=== PATIENT | female | born 1945 | race Asian ===

== ENCOUNTER → 2023-09-14 10:29 | Outpatient (REF) | payer OTHER, SELFPAY | LOC: RAD 10:29 | PROVIDERS: ATTENDING PHYSICIAN Specialist; FAMILY PHYSICIAN Family Medicine | DX: C67.9 Malignant neoplasm of bladder, unspecified (principal) | CPT/HCPCS: 74178; Q9967 ==

== ENCOUNTER 2023-10-25 06:24 | Day surgery (SDC) | payer OTHER, SELFPAY ==
[2023-10-25] VITALS (10 sets, daily range): BP systolic 116–160; BP diastolic 69–98; BMI 21.3
[2023-10-25] MEDS: CYSVIEW KIT 100 MG INTRAVES (09:20)
[2023-10-25] MEDS: NORMOSOL-R 1000 IV (09:35)
[2023-10-25] MEDS: DETROL LA 4 MG PO (12:19)
== END 2023-10-25 13:29 | disposition home or self-care (01) ==
LOC: SDS 06:24
PROVIDERS: ATTENDING PHYSICIAN Specialist
DX: C67.1 Malignant neoplasm of dome of bladder (principal)
CPT/HCPCS: 52235; 88307; 88341; 88342; 93005; A9589

== ENCOUNTER 2023-11-22 21:45 | Inpatient (IN) | payer OTHER, SELFPAY ==
[2023-11-22 19:02] VITALS: BP 161/84
[2023-11-22 19:48] LABS: Urine Albumin Trace (Neg - Trace); Urine Bilirubin Negative (Negative); Urine Character Clear (Clear); Urine Color Yellow; Urine Glucose Negative (Negative); Urine Ketone Negative (Negative); Urine Leukocyte 2+ (Negative); Urine Nitrite Negative (Negative); Urine Occult Blood 2+ (Negative); Urine Urobilinogen Negative (Neg - 1+)
--- NOTE | 2023-11-22 19:49 | ED.GENMED ---
History of Present Illness
General
Chief Complaint: Urinary Symptoms
Source: patient and spouse
Exam Limitations: other (Patient doesn't speak Congolese, SANDY)
Time Seen by Provider: 11/22/23 19:36
History of Present Illness
History of Present Illness:
This is a 78 year old female that comes in with c/o urinating every 3 min according to . States that she saw Dr. Ortega one week ago and he suggested this BCG treatment that treats Bladder cancer. States that she had her first treatment
today. States that when she got home she was urinating every 3 min as she has Urgency. states that she had chills and he thinks she had a fever but they did not check this at home. State that patient was nauseated but this is gone. States
that she has a slight headache, very sight urinary burning and frequency. . Denies any chest pain, SOB, abd pain, vomiting, diarrhea, dizziness.
Past History
Past History
ED Past Medical History: Arrthythmia (Atrial fib, SVT), CAD, Cancer (Bladder CA), CVA, HTN, Hypercholesterolemia, Seizures, Hypothyroidism, Psychiatric (Anxiety, Depression) and Other (Headache, Glaucoma, Dizziness, Numbness arms and legs, UTI)
ED Past Surgical History: Cholecystectomy, Gynecological (Hysterectomy. ) and Other (Hemorrhoidectomy, Thyroidectomy); Negative Cardiac
Social History
Tobacco: Non-smoker
Alcohol: None
Drug: None
Personal:
Living: with family
Employment: Retired
Family History
Family History: Other (Noncontributory)
Review of Systems
Review of Systems
All Other Systems: ROS reviewed and negative except as documented in HPI and ROS
Constitutional: Reports fever and chills
EENT: Reports no symptoms
Respiratory: Reports no symptoms; Denies cough or trouble breathing
Cardiac: Reports no symptoms; Denies chest pain
ABD/GI: Reports nausea; Denies abdominal pain, vomiting or diarrhea
: Reports dysuria (Slight), frequency and urgency
Musculoskeletal: Reports no symptoms
Skin: Reports no symptoms
Neurological: Reports headache; Denies dizzy
Psychiatric: Reports no symptoms
Phy Exam
General Physical Exam
General Presentation: no apparent distress
General age: appears stated age
General Skin: warm and dry
General Habitus: elderly
General Mental: alert
General Hydration: dry mucous membranes
ENT Exam
ENT Exam: TM's normal, pharynx normal and neck supple
Eye Exam
Eye Exam: EOMI
Cardiovascular Exam
Cardiovascular Exam: regular rate/rhythm, no edema, no murmur and normal peripheral pulses
Pulmonary Exam
Pulmonary Exam: lungs clear, no respiratory distress, no rales, chest non tender, no crackles, no rhonchi and no cough
Gastrointestinal Exam
Gastrointestinal Exam: normal bowel sounds, non tender, soft, no organomegaly, no pulsatile mass and non distended
Musculoskeletal Exam
Musculoskeletal Exam: full ROM and no edema
Skin Exam
Skin Exam: normal color, warm/dry, no rash and no petechia
Psychiatric Exam
Psychiatric Exam: normal mood/affect
Course
Orders/Labs/Results
Orders:
Orders
11/22/23 19:39
Complete Blood Count/With Diff Urgent
Comprehensive Metabolic Panel Urgent
Urinalysis Reflex To Culture Urgent
Date Specimen was Collected: 11/22/23
Time Specimen was Collected: 19:10
Urine Microscopic Reflex Cult Urgent
Urine Culture Urgent
MIRZA Source: U
Specimen Description:
Date Specimen was Collected: 11/22/23
Time Specimen was Collected: 19:10
11/22/23 19:49
0.9% Sodium Chloride 1000 ml [Nss] 1,000 ml IV BOLUS
11/22/23 19:55
Lactic Acid Urgent
11/22/23 20:46
CefTRIAXone [Rocephin] 1,000 mg IV NOW STA
Abnormal Lab Results
11/22/23
19:39
RBC 4.04 L 10^6/uL
(4.20-5.40)
MCH 32.7 H pg
(27.0-31.0)
Absolute Neuts (auto) 7.0 H 10^3/uL
(1.4-6.5)
Absolute Lymphs (auto) 0.5 L 10^3/uL
(1.2-3.4)
Neutrophils % 87.3 H %
(42.2-75.2)
Lymphocytes % 6.7 L %
(20.5-51.1)
Sodium 134 L mmol/L
(135-145)
Chloride 96 L mmol/L
(98-107)
Glucose 118 H mg/dl
(70-99)
Albumin 5.1 H g/dl
(3.5-5.0)
Ur Occult Blood Reflex 2+ A
(Negative)
Leukocyte Esterase Rfl 2+ A
(Negative)
Urine RBC 11-15 A /HPF
(0-2)
Urine WBC (Reflex) >100 A /HPF
(0-5)
Urine Bacteria (Reflex) Few A
(Negative)
11/22/23 19:39
11/22/23 19:39
Chloride slightly low. Glucose nonfasting. Urine positive for infection. Lactic acid normal at 1.8
Vital Signs
Initial and Last Documented VS:
Initial Vital Signs
Temp Pulse Resp BP Pulse Ox
98.6 F 81 20 161/84 98
11/22/23 19:02 11/22/23 19:02 11/22/23 19:02 11/22/23 19:02 11/22/23 19:02
Last Documented Vital Signs
Temp Pulse Resp BP Pulse Ox
98.8 F 81 20 161/84 98
11/22/23 20:41 11/22/23 19:02 11/22/23 19:02 11/22/23 19:02 11/22/23 19:02
MDM/Problems Addressed
Differential Diagnosis Includes:
reaction to BCG procedure. UTI
MDM/Problems Addressed:
This is a 78 year old female that comes in with c/o urinary frequency, chills and thinks she had a fever at home. Patient has her first BCG treatment for bladder cancer today. States that she went home and had chills with urinary frequency and
slight burning.
Will check labs, Urine, give IV fluids. Will Contact Dr. Ortega with Results.
Back into see patient and . Explained that she has a UTI and will be admitted. Spoke with Dr. Ortega and he feels that a UTI a few hours after procedure is not the norm but possible. States that she could have Tuberculosis as the BCG gets
into her system. Suggest that ID be consulted. Hospitalist to contact them. Hospitalist notified.
Chronic conditions affecting care: Cancer (Bladder)
Acute Exacerbation and/or Progression of Chronic Illness: Cancer (Bladder)
*Pulse Oximetry
Patient hypoxic: no
*EKG
Interpreted by ED Provider?: NA
Rate: EKG- N/A
*Bar Manager Interpretation
Rate: Bar Manager- N/A
*Critical Care Note
Total Time (30-74mins, 75-104mins- exclusive of procedures): Not Applicable
ED Attending Note
-
Portions of this chart may have been created with voice recognition software.� Occasional wrong word or��sound alike� substitutions may have occurred due to the inherent limitations of voice recognition software.
Discharge Plan
Departure
Patient Disposition: Admit
Date of Disposition: 11/22/23
Time of Disposition: 21:03
Admit to: Med/Surg
Presentation/result/management discussed w/ accepting MD/DO: Hospitalist
Patient with high blood pressure during this ER visit?: Yes
Condition: Good
Covid-19: Not Applicable
Discharge Problem:
Acute UTI (urinary tract infection)
Prescriptions:
No Action
levothyroxine 88 MCG tablet
88 mcg PO DAILY
losartan 50 MG tablet
50 mg PO DAILY
Eliquis 5 mg Tablet
5 mg PO BID Qty: 180 5RF
latanoprost 0.005 % Drops
1 drp BOTH EYES QPM
metoprolol succinate 50 mg Tablet Extended Release 24 Hr
50 mg PO DAILY
Patient Comments:
04/15/2023, patient and patient's spouse are unsure if patient took this medication this morning or last night.
lamotrigine 25 mg Tablet
75 mg PO BID
amlodipine 5 mg Tablet
5 mg PO DAILY
Referrals:
UNKNOWN - PT DOES,NOT KNOW [Unknown Provider] -
Interventions
Interventions:
*Risk Screen - Suicide Last Done: 11/22/23 19:02
*General Assessment Last Done: 11/22/23 19:02
*Neglect/Abuse Screening Last Done: 11/22/23 19:02
ED- Fall Risk Assessment Last Done: 11/22/23 19:02
*ED COVID-19 Vaccine History Last Done: 11/22/23 19:02
ED-Female Genitourinary Assessment Last Done: 11/22/23 19:44
Discharge Date and Time
Print Language: OMANI
[2023-11-22 19:58] LABS: Urine Squamous Cell 0-2 /LPF (Few)
[2023-11-22 19:59] LABS: Urine White Cell >100 /HPF (0-5)
[2023-11-22 20:00] LABS: Urine Bacteria Few (Negative)
[2023-11-22 20:11] LABS: % Basophils 0.2 % (0-2); % Eosinophils 0.5 % (0-6); % Immature Granulocytes 0.2 % (0-0.5); % Lymphocytes 6.7 % (20.5-51.1); % Monocytes 5.1 % (1.7-9.3); % Neutrophils 87.3 % (42.2-75.2); Absolute Lymphocytes 0.5 10^3/uL (1.2-3.4); Absolute Monocytes 0.4 10^3/uL (0.1-0.6); Hematocrit 38.5 % (37.0-47.0); Hemoglobin 13.2 g/dL (12.0-16.0); Mean Corp Hgb Conc. 34.3 g/dL (33.0-37.0); Mean Corpuscular Hgb 32.7 pg (27.0-31.0); Mean Corpuscular Volume 95.3 fL (81.0-99.0); Mean Platelet Volume 9.2 fL (7.4-10.4); Nucleated Red Blood Cells % 0 %; Platelet Count 194 10^3/uL (130-400); Red Blood Cell Count 4.04 10^6/uL (4.20-5.40); Red Cell Dist. Width 13.1 % (11.5-14.5)
[2023-11-22] MEDS: NSS 1000 IV ×2 (20:15→22:18)
[2023-11-22 20:39] LABS: Lactic Acid 1.8 mmol/L (0.7-2.0)
[2023-11-22 20:45] LABS: ALT (SGPT) 17 U/L (0-35); AST (SGOT) 33 U/L (14-36); Albumin 5.1 g/dl (3.5-5.0); Alkaline Phosphatase 86 U/L (38-126); Blood Urea Nitrogen 13 mg/dl (7-17); Carbon Dioxide 29 mmol/L (22-30); Chloride 96 mmol/L (98-107); Glucose 118 mg/dl (70-99); Potassium 4.4 mmol/L (3.5-5.1); Sodium 134 mmol/L (135-145); Total Bilirubin 0.8 mg/dl (0.2-1.3); Total Protein 7.8 g/dl (6.3-8.2); eGFR > 60.00
[2023-11-22] MEDS: ROCEPHIN 1000 MG IV (21:08)
--- NOTE | 2023-11-22 21:23 | HPS.HSE ---
Family Physician
-
Family Physician: Fareed Trinidad
Chief Complaint
-
urinary symptoms
History of Present Illness
78-year-old female past medical history of bladder cancer status post TURBT, atrial tachycardia status post ablation, hypertension, seizure disorder, hypothyroidism, glaucoma, presenting with complaint of urinating every 3 minutes as per .
She saw Dr. Ortega 1 week ago and underwent BCG for bladder cancer today. When she got home she was urinating every 3 minutes with urgency with urinary burning and frequency. She had chills anything she had a fever but this was not checked. She
had nausea but this resolved. She had a slight headache. Denies chest pain, shortness of breath, abdominal pain, vomiting or diarrhea or dizziness.
Medical History
Past Medical History
Past Medical History: Reports Other (bladder cancer status post TURBT, atrial tachycardia status post ablation, hypertension, seizure disorder, hypothyroidism, glaucoma,)
Past Surgical History: Reports Other (Cholecystectomy, Gynecological (Hysterectomy. ) and Other (Hemorrhoidectomy, Thyroidectomy);)
Social History
Tobacco: Non-smoker
Alcohol: None
Drug: None
Family History
Family History: Not pertinent
Allergies / Home Medications
Allergies reflects when Allergies were last updated in [facility].
Home Medications with original date entered in [facility]
Allergy/Medication List:
Allergies
Allergy/AdvReac Type Severity Reaction Status Date / Time
No Known Allergies Allergy Verified 11/22/23 19:02
Home Medications
levothyroxine 88 mcg tablet 88 mcg PO DAILY 06/01/19
losartan 50 mg tablet 50 mg PO DAILY 10/19/21
apixaban 5 mg tablet (Eliquis) 5 mg PO BID #180 tabs 03/24/22
latanoprost 0.005 % eye drops 1 drp BOTH EYES QPM 11/10/22
lamotrigine 25 mg tablet 75 mg PO BID 04/15/23
metoprolol succinate 50 mg tablet,extended release 24 hr 50 mg PO DAILY 04/15/23
amlodipine 5 mg tablet 5 mg PO DAILY 10/19/23
Review of Systems
-
History Source: Patient
A 12 point ROS was completed and negative except as noted: Yes
Constitutional: Reports No Symptoms
EENT: Reports No Symptoms
Respiratory: Reports No Symptoms
Cardiac: Reports No Symptoms
Abdomen/GI: Reports No Symptoms
: Reports See HPI
Musculoskeletal: Reports No Symptoms
Skin: Reports No Symptoms
Neurological: Reports No Symptoms
Endocrine: Reports No Symptoms
Hematologic/Lymphatic: Reports No Symptoms
Psych: Reports No Symptoms
Physical Exam
Vital Signs
Vital Signs
Temp Pulse Resp BP Pulse Ox
98.8 F 81 20 161/84 98
11/22/23 20:41 11/22/23 19:02 11/22/23 19:02 11/22/23 19:02 11/22/23 19:02
Physical Exam
General: Well Developed, Well Nourished and No Apparent Distress
HEENT: NormoCephalic, Moist mucous membranes and Atraumatic
Respiratory: Clear
Cardiac: S1/S2 and Regular Rhythm; No Murmur or Rub
GI: Soft, Non Tender, Non Distended and Normal Bowel Sounds; No Organomegaly
Rectal: Deferred by Provider
Musculoskeletal: No Clubbing, No Cyanosis and No Edema
Skin: No Rash
Neuro: Nonfocal/grossly intact
Laboratory Results
-
11/22/23 19:39
11/22/23 19:39
Laboratory Results
Lactic Acid 1.8 mmol/L (0.7-2.0) 11/22/23 19:55
Total Bilirubin 0.8 mg/dl (0.2-1.3) 11/22/23 19:39
AST 33 U/L (14-36) 11/22/23 19:39
ALT 17 U/L (0-35) 11/22/23 19:39
Alkaline Phosphatase 86 U/L (38-126) 11/22/23 19:39
Data Reviewed
-
Lab Data: Labs Reviewed by me
Old Records: Reviewed
Impression/Plan
-
IMPRESSION:
PLAN:
# Urinary tract infection, after intravesicular BCG today
-UA strongly indicative of infection
-Await urine culture
-IV fluid
-Ceftriaxone
-Urology consulted
-Urology concerned for potential systemic BCG absorption causing TB although clinical picture suggestive of UTI
Bladder cancer status post TURBT
-Status post intravesicular BCG today
Atrial tachycardia status post ablation
-Continue metoprolol
-Continue Eliquis
Essential hypertension
-Continue amlodipine
-Continue losartan
Seizure disorder
-Continue lamotrigine
Hypothyroidism
-Continue levothyroxine
Glaucoma
-Continue latanoprost
Full code
DVT prophylaxisis-Eliquis
Regular diet
[2023-11-22 22:16] VITALS: BMI 23.5
[2023-11-22 22:24] VITALS: BMI 23.5
[2023-11-22 22:41] VITALS: BP 146/80
--- NOTE | 2023-11-22 22:43 | PTCARENOTE ---
Received patient from ER at 2220. Pt AAOX3, ambulatory in room. Patient non-Mozambican speaking, in room who does speak Mozambican but is extremely KLETSEL DEHE WINTUN. to stay overnight with pt. Patient and oriented to room, call combs and plan of
care.
[2023-11-23 07:29] VITALS: BP 124/73
--- NOTE | 2023-11-23 08:22 | CON.MD ---
Consultation - Medical
-
see dictated note
pt with hx of high grade TCCA
yesterday received 1st does (of second 6 week course) of bcg
developed sig frequency and urgency- ? fever/chills
brought to ER
afebrile and nl wbc- HD stable
UA +- but this is difficult to interpret in setting of bcg
today says she feels fine
plan
doubt bcg infx- pt is too stable
possible UTI vs rxn to bcg- common with increased exposure
she feels well today- will await cx's
reviewed with pt and at bedside
[2023-11-23] MEDS: NORVASC PO (08:43)
[2023-11-23] MEDS: LAMICTAL PO (08:43)
[2023-11-23] MEDS: COZAAR PO (08:43)
[2023-11-23] MEDS: SYNTHROID PO (08:43)
--- NOTE | 2023-11-23 08:44 | PTCARENOTE ---
When attempting to give patient AM medications, pt's stated the patient had already taken pills from her pill organizer this morning. Pt and unable to explain exactly which pills were taken. This RN explained to pt and that
they should not be taking home medications while in the hospital, and that all pills are to be administered by us to avoid any complications, and encouraged to take pill organizer home. states that the patient will not take any more
home medications. notified, morning meds held. Plan of care ongoing.
--- NOTE | 2023-11-23 09:41 | W.PN.HOSP.TC ---
Today's Communication/Plan
-
Continue abx pending urine culture
Assessment / Plan
Assessment / Plan
IMPRESSION: 78-year-old female with history of bladder cancer S/p TURBT and
PLAN:
# Urinary frequency and urgency
s/p intravesicular BCG yesterday. Had subjective fever + chills. Vitals remain stable.
-UA questionable for infection, Urine cx pending
-IV fluid
-Continue Ceftriaxone
-Appreciate urology -unlikely BCG infection. possible UTI vs BCG procedure reaction
Bladder cancer status post TURBT
-Status post intravesicular BCG today
Atrial tachycardia status post ablation
-Continue metoprolol
-Continue Eliquis
Essential hypertension
-Continue amlodipine
-Continue losartan
Seizure disorder
-Continue lamotrigine
Hypothyroidism
-Continue levothyroxine
Glaucoma
-Continue latanoprost
Full code
DVT prophylaxisis-Eliquis
Regular diet
Anticipated Discharge: Within 24 hours
Subjective/Interval History
-
Date of Service: November 23, 2023
Pt had urinary frequency and urgency with subjective fever and chills after intravesicular BCG procedure yesterday for Bladder cancer. Hx of BCG vaccine in [place]
Objective Data
-
Labs:
Laboratory Results
11/23/23
09:12
WBC Pending
Hgb Pending
Hct Pending
Plt Count Pending
Sodium Pending
Potassium Pending
Chloride Pending
Carbon Dioxide Pending
BUN Pending
Creatinine Pending
Glucose Pending
Calcium Pending
Total Bilirubin Pending
AST Pending
ALT Pending
Alkaline Phosphatase Pending
Vital Signs:
Vital Signs
Temp Pulse Resp BP Pulse Ox
98.2 F 60 20 124/73 94
11/23/23 07:29 11/23/23 07:29 11/23/23 07:29 11/23/23 07:29 11/23/23 07:29
I&O
11/22/23 11/23/23 11/24/23
06:59 06:59 06:59
Intake Total 240 / 240
Balance 240 / 240
Review of Systems
-
History Source: Patient
Constitutional: Reports No Symptoms; Denies Fever or Chills
Respiratory: Denies Cough or Trouble Breathing
Genitourinary: Reports Frequency and Urgency; Denies Dysuria, Incontinence or Difficulty Voiding
Physical Exam
-
General: Well Developed, Well Nourished, No Apparent Distress and Comfortable
Respiratory: Clear to Auscultation and Non Labored Respirations; Negative Wheezes, Rales, Rhonchi or Crackles
Cardiac: Regular Rhythm and S1/S2; Negative Murmur, Rub or Calf Tenderness
GI: Soft, Nontender, Nondistended and Normal Bowel Sounds
Genito-urinary: Other (no suprapubic fullness/tenderness)
Skin: Warm and Dry
Neuro: Awake, Alert, Oriented and AO x 3
Hematologic / Lymphatic: No Lymphadenopathy
Psych: Calm
[2023-11-23 10:10] LABS: % Basophils 0.1 % (0-2); % Eosinophils 0.1 % (0-6); % Immature Granulocytes 0.3 % (0-0.5); % Lymphocytes 12.5 % (20.5-51.1); % Monocytes 6.8 % (1.7-9.3); % Neutrophils 80.2 % (42.2-75.2); Absolute Lymphocytes 0.9 10^3/uL (1.2-3.4); Absolute Monocytes 0.5 10^3/uL (0.1-0.6); Absolute Neutrophils 5.6 10^3/uL (1.4-6.5); Hematocrit 34.8 % (37.0-47.0); Mean Corp Hgb Conc. 34.5 g/dL (33.0-37.0); Mean Corpuscular Volume 92.8 fL (81.0-99.0); Mean Platelet Volume 9.6 fL (7.4-10.4); Nucleated Red Blood Cells % 0 %; Platelet Count 195 10^3/uL (130-400); Red Blood Cell Count 3.75 10^6/uL (4.20-5.40); Red Cell Dist. Width 13.2 % (11.5-14.5)
[2023-11-23 11:04] LABS: ALT (SGPT) 15 U/L (0-35); AST (SGOT) 27 U/L (14-36); Albumin 4.2 g/dl (3.5-5.0); Alkaline Phosphatase 72 U/L (38-126); Blood Urea Nitrogen 9 mg/dl (7-17); Calcium 8.5 mg/dl (8.4-10.2); Carbon Dioxide 25 mmol/L (22-30); Chloride 105 mmol/L (98-107); Estimated Creatinine Clearance 61 ml/min; Glucose 105 mg/dl (70-99); Potassium 3.7 mmol/L (3.5-5.1); Sodium 138 mmol/L (135-145); Total Bilirubin 0.7 mg/dl (0.2-1.3); Total Protein 6.8 g/dl (6.3-8.2); eGFR > 60.00
--- NOTE | 2023-11-23 15:20 | CM ---
Patient chart reviewed.
Patient on isolation - non-cypriot speaking.
CM to follow-up with spouse when visiting patient.
Plan: Discharge to home when stable.
[2023-11-23 15:30] VITALS: BP 104/64
[2023-11-23] MEDS: NSS 1000 IV (15:47)
--- NOTE | 2023-11-23 15:56 | W.PN.UPDATE ---
Update Note
Progress Note Update
I saw and evaluated the patient. I reviewed the resident�s note and agree with findings and plan as documented in the resident�s note.
Admitted post intravesical BCG administration with increased frequency and urgency of urine. Patient does not speak Swedish. 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 Compared to yesterday improving frequency and urgency. No dysuria apparently.
She is afebrile and hemodynamically stable. Abdomen benign. Urinalysis shows significant pyuria. Unclear if this is an allergic/local inflammatory disorder for BCG or UTI. Await urine culture. In meantime continue with antibiotic. Urology
input noted.
[2023-11-23] MEDS: LAMICTAL 75 MG PO (19:51)
[2023-11-23] MEDS: ROCEPHIN 1000 MG IV (19:53)
[2023-11-23] MEDS: STERILE WATER FOR INJECTION 10 ML IV (19:54)
[2023-11-23 23:00] VITALS: BP 127/66
[2023-11-24] MEDS: NSS 1000 IV (04:05)
[2023-11-24] MEDS: XALATAN OPHTHALMIC SOLUTION 1 DROP BOTH EYES ×2 (05:01→07:59)
[2023-11-24] MEDS: SYNTHROID 88 MCG PO (05:01)
--- NOTE | 2023-11-24 07:01 | W.DCSUMMARY ---
Discharge Summary
Discharge Data
Date of Admission: 11/22/23
Date of Discharge: 11/24/23
-
Pending Results: No
Hospital Course
Discharge Physician: Sveta Jones MD; Mukul Lerner MD.
Primary discharge diagnosis: Urinary frequency/urgency secondary to intravesicular BCG
Chronic discharge diagnosis: Bladder cancer, Amyloidosis of the bladder, Hypertension, Remote history of seizure disorder, Hyperthyroidism, SVT/AFib
Hospital Course: 78-year-old female with above history who presented to the ED with urinary urgency and frequency with subjective fever and chills, after receiving her first dose of the second round of intravesicular BCG treatment for bladder
cancer. On arrival to the emergency room she was hemodynamically stable with no fever or white count. There was no gross hematuria. She was admitted for evaluation and there was concern for UTI versus PCP/tuberculosis infection. Urinalysis was
questionable for UTI, urine culture was taken, and the patient was admitted with airborne isolation protocol and IV ceftriaxone close IV fluids were started. All home medications were continued throughout stay.
Patient noted symptom improvement, and urine culture was negative. She looked well, remained afebrile and hemodynamically stable throughout stay. IV antibiotics was discontinued and patient was discharged.
She is to follow-up with her urologist, with plan to delay next BCG dose with premedication with ibuprofen and Gemtesa.
Relevant Data:
Urine Culture 11/21: No growth
Consults:
Urology
Discharge Plan
-
Patient Disposition: Home (Routine Discharge)
Discharge Diagnosis/Procedures: Urinary frequency/urgency, suspected secondary to BCG reaction
Condition: Fair
Diet: No restrictions
Activity: No restrictions
Driving Restrictions: As prior to admission
Instructions: Bladder cancer
Referrals:
Eron Ortega MD [Active] -
Fareed Trinidad DO [Family Provider] -
Prescriptions:
New
vibegron 75 mg tablet
75 mg PO DAILY Qty: 1 0RF
Rx Instructions:
Collect samples from Urologist office
Continued
levothyroxine 88 MCG tablet
88 mcg PO DAILY
losartan 50 MG tablet
50 mg PO DAILY
latanoprost 0.005 % Drops
1 drp BOTH EYES QPM
metoprolol succinate 50 mg Tablet Extended Release 24 Hr
50 mg PO DAILY
Patient Comments:
04/15/2023, patient and patient's spouse are unsure if patient took this medication this morning or last night.
lamotrigine 25 mg Tablet
75 mg PO BID
amlodipine 5 mg Tablet
5 mg PO DAILY
Eliquis 5 mg tablet
5 mg PO BID
Discharge Orders:
Discharge Patient (As Directed); Ordered 11/24/23
Ordered By: Sveta Jones
Discharge Date and Time
Discharge Date/Time: 11/24/23 12:50
Print Language: ROMANIAN
[2023-11-24 07:38] VITALS: BP 140/83
[2023-11-24] MEDS: NORVASC 5 MG PO (07:58)
[2023-11-24] MEDS: COZAAR 50 MG PO (07:58)
[2023-11-24] MEDS: LAMICTAL 75 MG PO (07:58)
[2023-11-24 08:27] LABS: Hematocrit 35.6 % (37.0-47.0); Hemoglobin 12.2 g/dL (12.0-16.0); Mean Corp Hgb Conc. 34.3 g/dL (33.0-37.0); Mean Corpuscular Hgb 32.3 pg (27.0-31.0); Mean Corpuscular Volume 94.2 fL (81.0-99.0); Mean Platelet Volume 9.7 fL (7.4-10.4); Platelet Count 181 10^3/uL (130-400); Red Blood Cell Count 3.78 10^6/uL (4.20-5.40); Red Cell Dist. Width 13.3 % (11.5-14.5); White Blood Cell Count 4.1 10^3/uL (4.8-10.8)
--- NOTE | 2023-11-24 09:14 | W.PN.URO.CBU ---
Today's Communication / Plan
-
discharge
Assessment / Plan
-
bcg reaction- but no evid of systemic absorption of UTI
urgency present- but improving
spoke with pt's daughter yesterday- reviewed plan extensively with pt and at bedside and wrote all instructions down
ok for discharge today- they will knot picker cloth samples of gemtesa at my office to help with bladder sx's- cancel next week's bcg appointment- then resume the following week while on gemtesa and taking premed of ibuprofen (this was all written down for
them)
if can not tolerate bcg- did discuss what other limited options would be available
Diagnosis
-
Date of Service: November 24, 2023
-
Patient Diagnosis:
bladder cancer
subjective fevers and urgency after bcg
Subjective
-
no fevers and nl wbc
ucx negative
still with urgency- but improving
Objective
-
Vital Signs
Temp Pulse Resp BP Pulse Ox
98.7 F 53 18 140/83 97
11/24/23 07:38 11/24/23 07:38 11/24/23 07:38 11/24/23 07:38 11/24/23 07:38
Intake and Output
11/23/23 11/24/23 11/25/23
06:59 06:59 06:59
Intake Total 240 / 240 1920 / 1920
Balance 240 / 240 1920 / 1920
Intake:
Oral fluids 240 / 240 960 / 960
IV fluids (Total) 960 / 960
Other:
Number of approximated MODERATE 2 3
amounts of urine
Laboratory Results
11/24/23 07:59
11/23/23 09:12
Physical Exam
-
General -no acute distress
Abdomen - soft, non-tender
--- NOTE | 2023-11-24 11:17 | CM ---
Spoke with Dr. Lerner.
Stable for discharge today.
Discharged to home today with . No needs.
[2023-11-24 11:52] VITALS: BP 150/84
--- NOTE | 2023-11-24 15:00 | W.PN.HOSP.TC ---
Today's Communication/Plan
-
DC
Assessment / Plan
Assessment / Plan
IMPRESSION: 78-year-old female with history of bladder cancer S/p TURBT and
PLAN:
# Urinary frequency and urgency
s/p intravesicular BCG. Had subjective fever + chills. Afebrile, Vitals remain stable.
-UA questionable for infection, Urine cx NO GROWTH
-Discontinue IV fluids and ceftriaxone
-Appreciate urology input
-Okay to discharge: To follow-up with urologist, likely premedication with ibuprofen/Gemtesa for next BCG dose
Bladder cancer status post TURBT
-Status post intravesicular BCG
Atrial tachycardia status post ablation
-Continue metoprolol
-Continue Eliquis
Essential hypertension
-Continue amlodipine
-Continue losartan
Seizure disorder
-Continue lamotrigine
Hypothyroidism
-Continue levothyroxine
Glaucoma
-Continue latanoprost
Full code
DVT prophylaxisis-Eliquis
Regular diet
Anticipated Discharge: Today
Subjective/Interval History
-
Date of Service: November 24, 2023
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
Improving frequency.
Objective Data
-
Labs:
Laboratory Results
11/24/23
07:59
WBC 4.1 L
Hgb 12.2
Hct 35.6 L
Plt Count 181
Vital Signs:
Vital Signs
Temp Pulse Resp BP Pulse Ox
98.9 F 59 20 150/84 97
11/24/23 11:52 11/24/23 11:52 11/24/23 11:52 11/24/23 11:52 11/24/23 11:52
I&O
11/23/23 11/24/23 11/25/23
06:59 06:59 06:59
Intake Total 240 / 240 1919
Balance 240 / 240 1919
Review of Systems
-
Constitutional: Denies Fever
Respiratory: Denies Trouble Breathing
Cardiac: Denies Chest Pain
Abdomen/GI: Denies Abdominal Pain, Nausea or Vomiting
Neuro: Denies Dizzy
Physical Exam
-
General: No Apparent Distress
HEENT: Moist Mucous Membranes
Respiratory: Clear to Auscultation
Cardiac: Regular Rhythm and S1/S2
GI: Soft, Nontender, Nondistended and Normal Bowel Sounds
Neuro: AO x 3
Data Reviewed
-
Labs: Labs Reviewed by me
== END 2023-11-24 12:50 | disposition home or self-care (01) | DRG 696 ==
LOC: 4 WEST ACU 21:45
PROVIDERS: Clinical Nurse Specialist Family Health; Emergency Medicine; Student in an Organized Health Care Education/Training Program; ADMITTING PHYSICIAN Hospitalist; ATTENDING PHYSICIAN Internal Medicine; EMERGENCY PHYSICIAN Emergency Medicine; FAMILY PHYSICIAN Family Medicine; OTHER PHYSICIAN Specialist
DX: R35.0 Frequency of micturition (principal); I47.19 Other supraventricular tachycardia; E85.89 Other amyloidosis; R39.15 Urgency of urination; T50.Z95A Adverse effect of other vaccines and biological substances, initial encounter; C67.9 Malignant neoplasm of bladder, unspecified; G40.909 Epilepsy, unspecified, not intractable, without status epilepticus; I10 Essential (primary) hypertension; F32.A Depression, unspecified; E89.0 Postprocedural hypothyroidism; E78.00 Pure hypercholesterolemia, unspecified; I48.91 Unspecified atrial fibrillation; H40.9 Unspecified glaucoma; F41.9 Anxiety disorder, unspecified; I25.10 Atherosclerotic heart disease of native coronary artery without angina pectoris; Z79.01 Long term (current) use of anticoagulants; Z79.890 Hormone replacement therapy; Z79.899 Other long term (current) drug therapy; Z86.73 Personal history of transient ischemic attack (TIA), and cerebral infarction without residual deficits; Z90.49 Acquired absence of other specified parts of digestive tract; Z90.710 Acquired absence of both cervix and uterus; Z87.440 Personal history of urinary (tract) infections
CPT/HCPCS: 80053; 81003; 81015; 83605; 85025; 85027; 87086; 96361; 96374; 99285

== ENCOUNTER → 2024-02-13 08:18 | Outpatient (REF) | payer OTHER, SELFPAY | LOC: RCS 08:18 | PROVIDERS: ATTENDING PHYSICIAN Internal Medicine Cardiovascular Disease; FAMILY PHYSICIAN Family Medicine | DX: I10 Essential (primary) hypertension (principal) | CPT/HCPCS: 93306 ==